=== PATIENT | female | born 1975 | race Caucasian/White ===

== ENCOUNTER 2023-02-08 01:03 | Inpatient (IN) | payer OTHER, SELFPAY ==
[2023-02-08 01:41] VITALS: BP 160/92; PULSE 94; RESP 16; TEMP 37.1; O2SAT 97
[2023-02-08 01:55] VITALS: BMI 45.0
--- NOTE | 2023-02-08 06:01 | PC.ADMIT ---
Patient is a 47years old admitted to the unit for Unspecified Depressive Disorder after referral from [facility] crisis. Shyam arrived to the unit @0110. Legal status: CV. Patient signed a 3 day notice as well. 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 Per [facility] crisis notes, patient called 911 due to cutting arms with razor, patient reports she wants to shoot her brains out and she would if she had a gun , Patient also reported she is depressed and was cutting yesterday. Patient also stated she is feeling suicidal with plan to hang herself, and stated she would not be able to remain safe if she were to leave the hospital. Patient reported that she uses crack cocaine in small amounts and also reports she only uses it sometimes . Patient's vital signs stable except for mildly elevated BP, pt is asymptomatic. Patient denies pain. This sql report writer unable to perform skin check as patient is practically WC bound as a result of the stroke. Patint denied any SI/HI/AH/VH upon assessment. Provider production illustrator notified of admission and orders obtained. Patient placed on 5mins check. Patient reports feeling safe on unit.
[2023-02-08 09:43] VITALS: BP 146/84; PULSE 81; RESP 18; TEMP 36.6; O2SAT 95
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
--- NOTE | 2023-02-08 13:27 | PC.NURSE ---
Pt has a history of stroke with left sided weakness. Pt reports she uses a Sebastien lift at home and transfers to a wheelchair. Pt reports she is unable to ambulate. Provider made aware. New orders received for 1:1 with wheelchair use. Provider made aware of difficult transfer to wheelchair and need for Sebastien lift.
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
[2023-02-08 14:50] VITALS: BP 133/83; PULSE 80
[2023-02-08] MEDS: Gabapentin 400 MG CAPSULE 800 MG PO ×2 (14:52→20:45)
[2023-02-08] MEDS: amLODIPine Besylate 10 MG TABLET PO (14:52)
[2023-02-08] MEDS: Divalproex Sodium ER 500 MG TAB.ER.24H 1000 MG PO ×2 (14:53→20:46)
[2023-02-08 18:00] VITALS: BP 142/78; PULSE 79; TEMP 36.6
[2023-02-09 06:00] VITALS: BP 134/80; PULSE 83; RESP 16
[2023-02-09] MEDS: Omeprazole 20 MG CAPSULE.DR PO (06:20)
[2023-02-09 08:28] LABS: Alanine Aminotransferase 15 U/L (0-31); Albumin Level 3.1 g/dL (3.5-5.0); Alkaline Phosphatase 54 U/L (39-117); Anion Gap 11 (12-20); Aspartate Amino Transferase 37 U/L (5-31); Bilirubin Total 0.8 mg/dL (0.0-1.0); Blood Urea Nitrogen 19 mg/dL (9-16); Calcium 9.2 mg/dL (8.4-10.2); Carbon Dioxide 24 mmol/L (22-29); Chloride 105 mmol/L (96-108); Cholesterol 144 mg/dL (<200); Creatinine Clr Calc Pharmacy 128.2; Estimated Glomerular Filt Rate > 60; Glucose Fasting 115 mg/dL (60-99); HDL Cholesterol 33 mg/dL (>40); LDL Cholesterol Calculated 85 mg/dL (<100); Potassium 4.3 mmol/L (3.3-5.1); Sodium 136 mmol/L (135-145); Total Protein 6.3 g/dL (6.5-8.0); Triglycerides 132 mg/dL (<150)
--- NOTE | 2023-02-09 09:27 | P.DS_ITS ---
DS: Providers Provider Date of Service: 02/09/23 Date of admission: 02/08/23 01:03 Date of discharge: 02/09/23 Primary care physician: Unknown Physician Admitting clinician: Cuate Chaney Consults: 02/08/23 04:21 Consult to Hospitalist Routine Comment: Consulting Provider: Hospitalist Reason For Exam: direct admission Attending physician on discharge: Cuate Chaney DS: Diagnosis Discharge Diagnosis (1) Adjustment disorder with mixed disturbance of emotions and conduct in remission: Status: Acute (2) PTSD (post-traumatic stress disorder): Status: Acute (3) Borderline personality disorder: Status: Acute (4) Hemiparesis affecting left side as late effect of cerebrovascular accident: Status: Acute (5) Morbid obesity: Status: Acute (6) Psychogenic nonepileptic seizure: Status: Acute (7) COPD (chronic obstructive pulmonary disease): Status: Chronic (8) HIV (human immunodeficiency virus infection): Status: Chronic DS: Medications Discharge Medications Home Medications: Home Medications Medication Instructions Recorded Confirmed acetaminophen 325 mg tablet 650 mg PO TID PRN pain 02/08/23 02/08/23 amlodipine 10 mg tablet 10 mg PO DAILY 02/08/23 02/08/23 diclofenac sodium 1 % topical gel 1 g topical NEEDED PRN Pain, 02/08/23 02/08/23 (Arthritis Pain (diclofenac)) Mild divalproex 500 mg tablet,extended 1,000 mg PO BID 02/08/23 02/08/23 release 24 hr dolutegravir 50 mg tablet (Tivicay) 50 mg PO DAILY 02/08/23 02/08/23 emtricitabine 200 mg-tenofovir 1 tab PO DAILY 02/08/23 02/08/23 alafenamide fumarate 25 mg tablet (Descovy) gabapentin 800 mg tablet 800 mg PO BID pain 02/08/23 02/08/23 ketoconazole 2 % topical cream 1 appl topical BID PRN Rash 02/08/23 02/08/23 lactulose 10 gram/15 mL oral 30 ml PO TID 02/08/23 02/08/23 solution lidocaine 5 % topical patch 1 patch topical 1XD Pain 02/08/23 02/08/23 (Lidoderm) olmesartan 40 1 tab PO DAILY 02/08/23 02/08/23 mg-hydrochlorothiazide 12.5 mg tablet pantoprazole 40 mg tablet,delayed 40 mg PO DAILY 02/08/23 02/08/23 release Previous Rx's Medication Instructions Recorded albuterol sulfate 90 mcg/actuation 2 puff inhalation RQ4H PRN 02/09/23 aerosol inhaler (Ventolin HFA) Shortness Of Breath #0 grams Mental Status Exam Mental Status Exam Narrative: Pt is alert and oriented; behavior is cooperative, friendly and calm; patient is not in distress; morbidly obese and in a wheelchair; dressed in casual attire with unkempt hair but adequate hygiene; mood is described as good and affect congruent; eye contact appropriate; Speech is normal rate, volume and prosody and not pressured; no psychomotor agitation/retardation present; thought process is organized and goal directed; Thought content is on feeling better, discharge; otherwise pertinent to relevant topics and without any delusional content, paranoid ideations or grandiosity; denies any SI/HI; denies any urges to self- harm. There is no evidence of perceptual disturbance and denies AVH Patients insight and judgment appear intact. Data Data Completed and Pending Completed studies during hospitalization [Text1]: 02/09/23 07:47 Sodium 136 Potassium 4.3 Chloride 105 Carbon Dioxide 24 Anion Gap 11 L BUN 19 H Creatinine 0.78 Estim Creat Clear Calc 128.2 Estimated GFR > 60 Fasting Glucose 115 H Calcium 9.2 Total Bilirubin 0.8 AST 37 H ALT 15 Alkaline Phosphatase 54 Total Protein 6.3 L Albumin 3.1 L Triglycerides 132 Cholesterol 144 LDL Cholesterol, Calc 85 HDL Cholesterol 33 L DS: Summary Hospital Course Hospital Course: HPI: Patient is a 46-year-old female with history of PTSD, MDD, borderline personality disorder, conversion disorder, nonepileptic seizures, polysubstance abuse, hypertension, COPD, HIV on HAART, traumatic subarachnoid hemorrhage in 2001 with residual left-sided hemiparesis? chronic SI and numerous inpatient psychiatric admissions, who presents for dysregulated suicidality, saying she would shoot her brains out if she had a gun, in the face of recent break-up with her boyfriend, loss of her aunt and relational friction with her son's girlfriend, and chronic substance abuse.? 911 was called by patient's significant other reporting patient was cutting herself with a razor. When EMS/police arrived patient was holding a razor to her neck; on admission to the ED patient was agitated and chemically restrained.? However In the ED Patient soon calmed down and reported that her mood was better since she 1st came in; she reported to ED staff that anxiety and depression had abated and she was no longer feeling suicidal at all and asked for discharge home. -will hold off including bipolar disorder as a diagnosis given that manic episodes could not be clearly assessed due to chronic substance abuse, combined with PTSD/borderline personality disorder and high expressed emotion. On admission to patient is calm, cooperative and friendly. She reports that it is typical for her to cut herself when she is mad. She says she does it e very time she gets mad. She says as soon as I see blood I feel fine. Patient reports that she felt overwhelmed on that day since her ex-boyfriend left her the same day her aunt . However she says that her upset feelings have resolved and she is back to her regular self. She says I feel happy, i feel good and she is looking forward to getting home to see her dogs. Patient reports that this type of scenario is typical for her, that she will flare up in anger, get dysregulated suicidal but then it will just as quickly pass. Patient asks for discharge reminding science writer that this incident happened 2 days ago. She reiterates that she is back to her regular self and would like to get home. Impression/Plan: Patients long history of PTSD, personality issues, substance abuse have coincided with an equally long history of intermittent adjustment disorder flares-ups, that bring about dysregulated behavior and suicidality but also quickly resolve. Recent incident happened 2 days ago; and even at [facility] ED, both patient (and corroborating notes) report patient had calm down, was without SI and asking for discharge. Patient has returned to her baseline which includes chronic vulnerability to relapse and mood dysregulation. Patient lives in the community, day to day as a chronically high risk patient which will not change with longer inpatient stay. Rather, progress requires consistent commitment to sobriety and outpatient therapy with which patient is not yet ready to fully engage; patient is well aware of this and reports she is not ready to commit to sobriety and understands how this effects mood lability. Patient signed a 3 day notice. Patient remained in good behavioral and impulse control, polite, friendly, reporting good mood and denying any SI/HI. Patient reports sleeping and eating well since going to the emergency room and maintains that her emotional dysregulation remains resolved and that she is back to her regular self. Patient does not want any medication management and already has outpatient services in place (and has currently been med compliant evidenced by therapeutic Depakote level in ED). Patient is also morbidly obese and reports she be much more comfortable at home and hopes she will not have to wait out her 3 day notice. Patient is not in imminent risk for harm to self or others and request for discharge honored. Time spent discussing smoking cessation with patient: 3 to 10 minutes Status at Discharge Functional status at discharge: uses cane/walker (and wheelchair) Overall status at discharge: patient is back to baseline Time Spent with Patient Time attestation: Total time managing care of this patient today ____ minutes. Time spent: Greater than 30 minutes Discharge Plan Discharge Anticipated Discharge Date/Time: 02/09/23 11:30 Patient Disposition: Home, Self-Care Discharge Diagnosis: Adjustment disorder with disturbance of emotion and conduct, in full remission Referrals: [facility] [Other] - 1 Week (Walk-In Clinic.) Physician,Unknown J [Primary Care Provider] - 1 Week Discharge Medications: New albuterol sulfate [Ventolin HFA] 90 mcg/actuation Hfa Aerosol Inhaler 2 puff inhalation RQ4H PRN (Reason: Shortness Of Breath) Qty: 0 0RF Continued acetaminophen 325 mg tablet 650 mg PO TID PRN (Reason: pain) amlodipine 10 mg tablet 10 mg PO DAILY Descovy 200-25 mg tablet 1 tab PO DAILY diclofenac sodium [Arthritis Pain (diclofenac)] 1 % gel 1 g topical NEEDED PRN (Reason: Pain, Mild) pantoprazole 40 mg tablet,delayed release (DR/EC) 40 mg PO DAILY divalproex 500 mg tablet extended release 24 hr 1,000 mg PO BID lidocaine [Lidoderm] 5 % adhesive patch,medicated 1 patch topical 1XD ketoconazole 2 % cream 1 appl topical BID PRN (Reason: Rash) olmesartan-hydrochlorothiazide 40-12.5 mg tablet 1 tab PO DAILY lactulose 10 gram/15 mL solution 30 ml PO TID Tivicay 50 mg tablet 50 mg PO DAILY gabapentin 800 mg tablet 800 mg PO BID 14 Days Qty: 28 1RF Discontinued buprenorphine-naloxone [Suboxone] 8-2 mg film 10 mg sublingual TID Discharge Orders: Discharge Order (Routine); Ordered 02/09/23 Ordered By: Cuate Chaney Diet: Regular diet Activity on Discharge: As tolerated Stand Alone Forms: Patient Portal Discharge page, Community Support Care Plan Goals: Maintain mood and safe behaviors Take medications as prescribed Continue to pursue sobriety Practice coping skills Continue with outpatient providers and reach out to them as needed Health Concerns: Mood stability and behaviors Sobriety hypertension COPD Immunodeficiency illness, on HAART left-sided hemiparesis Plan of Treatment: Follow up with your PCP, psychiatric provider and other outpatient providers regarding above concerns Take medications as prescribed Assessment: Risk assessment at time of discharge:? Patient was interviewed prior to discharge and found to be fully oriented and without any SI or HI. Patient has insight and demonstrates good judgment in terms of wanting to pursue treatment. Patient is not in imminent risk of harm to self or others and has a safety plan that includes presenting to the closest ER or calling 911 if feeling unsafe.? Patient has been observed closely by nursing and unit staff throughout admission; patient has not engaged in any behaviors that suggest dangerousness to self or others and has demonstrated appropriate behaviors and impulse control Discharge Date/Time: 02/09/23 11:59
[2023-02-09] MEDS: Valsartan 160 MG TABLET PO (09:39)
[2023-02-09] MEDS: Lidocaine 4 % Patch ADH..PATCH 2 PATCH TRANSDERMA (09:39)
[2023-02-09] MEDS: Divalproex Sodium ER 500 MG TAB.ER.24H 1000 MG PO (09:39)
[2023-02-09] MEDS: Gabapentin 400 MG CAPSULE 800 MG PO (09:39)
[2023-02-09] MEDS: Emtricitabine/Tenofov Alafenam TABLET 1 TAB PO (09:40)
[2023-02-09] MEDS: Dolutegravir Sodium 50 MG TABLET PO (09:40)
[2023-02-09] MEDS: amLODIPine Besylate 10 MG TABLET PO (09:40)
[2023-02-09] MEDS: hydroCHLOROthiazide 12.5 MG TABLET PO (09:40)
[2023-02-09] MEDS: Naloxone HCl Nasal TAKE HOME 4 MG SPRAY 8 MG NOSTRILALT (11:36)
== END 2023-02-09 11:59 | disposition home or self-care (01) | DRG 753 ==
PROVIDERS: Psychiatry & Neurology Psychiatry; Admitting Provider Psychiatry & Neurology Psychiatry; Visit Provider Psychiatry & Neurology Psychiatry
DX: F31.9 Bipolar disorder, unspecified (principal); N17.9 Acute kidney failure, unspecified; F44.5 Conversion disorder with seizures or convulsions; R45.851 Suicidal ideations; I69.354 Hemiplegia and hemiparesis following cerebral infarction affecting left non-dominant side; J44.9 Chronic obstructive pulmonary disease, unspecified; F17.210 Nicotine dependence, cigarettes, uncomplicated; Z71.6 Tobacco abuse counseling; Z21 Asymptomatic human immunodeficiency virus [HIV] infection status; F43.25 Adjustment disorder with mixed disturbance of emotions and conduct; F60.3 Borderline personality disorder; M54.59 Other low back pain; E87.6 Hypokalemia; I10 Essential (primary) hypertension; G89.29 Other chronic pain; E66.01 Morbid (severe) obesity due to excess calories; Z99.3 Dependence on wheelchair; Z68.42 Body mass index [BMI] 45.0-49.9, adult; Z91.041 Radiographic dye allergy status; Z79.899 Other long term (current) drug therapy
CPT/HCPCS: 36415; 80053; 80061

== ENCOUNTER → 2023-02-08 01:03 | Outpatient (BNV) | payer OTHER, SELFPAY | PROVIDERS: Admitting Provider Psychiatry & Neurology Psychiatry; Visit Provider Physician Assistant | DX: E87.6 Hypokalemia (principal) | CPT/HCPCS: 99222 ==

== ENCOUNTER → 2023-02-08 01:03 | Outpatient (BNV) | payer OTHER, SELFPAY | PROVIDERS: Admitting Provider Psychiatry & Neurology Psychiatry; Visit Provider Psychiatry & Neurology Psychiatry | DX: F43.25 Adjustment disorder with mixed disturbance of emotions and conduct (principal); F43.11 Post-traumatic stress disorder, acute; F60.3 Borderline personality disorder; I69.354 Hemiplegia and hemiparesis following cerebral infarction affecting left non-dominant side; F44.5 Conversion disorder with seizures or convulsions; E66.01 Morbid (severe) obesity due to excess calories; J44.9 Chronic obstructive pulmonary disease, unspecified; B20 Human immunodeficiency virus [HIV] disease | CPT/HCPCS: 99232; 99233 ==